=== PATIENT | male | born 1960 | race Caucasian/White ===

== ENCOUNTER → 2021-10-20 14:04 | Outpatient (CLI) | payer OTHER, SELFPAY ==
[2021-10-20 14:47] LABS: COVID19 -Nasal RAPID Negative (Negative)
== END ==
PROVIDERS: Visit Provider Surgery
DX: Z20.822 Contact with and (suspected) exposure to COVID-19 (principal); Z01.812 Encounter for preprocedural laboratory examination
CPT/HCPCS: 87635; C9803

== ENCOUNTER 2021-10-23 11:02 | Day surgery (SDC) | payer OTHER, SELFPAY ==
[2021-10-23] VITALS (7 sets, daily range): BP systolic 113–141; BP diastolic 68–82; PULSE 58–68; RESP 10–16; TEMP 36.3–36.6; O2SAT 99–100; BMI 26.5
--- NOTE | 2021-10-23 | PATH_ITS ---
[facility] Accession Number: [id number] . 01 Material submitted: . PART A: duodenum - DUODNEUM PART B: stomach - ANTRUM PART C: gastrointestinal site - GASTRIC POLYP PART D: colon - DESCENDING COLON POLYP PART E: sigmoid colon - SIGMOID COLON POLYP . 01 Diagnosis: A. Duodenum, Biopsy: Duodenal mucosa with no diagnostic abnormality. Negative for active inflammation, features of sprue, dysplasia, or malignancy. . B. Stomach, Antrum, Biopsy: Antral mucosa with mild chronic gastritis. Negative for Helicobacter by immunohistochemistry. Negative for intestinal metaplasia. Negative for dysplasia and malignancy. . C. Stomach, Polyp, Biopsy: Fundic gland polyp. No evidence of Helicobacter organisms on H/E stain. Negative for intestinal metaplasia. Negative for dysplasia and malignancy. . D. Descending Colon, Polyp, Biopsy: Tubular adenoma. . E. Sigmoid Colon, Polyp, Biopsy: Tubular adenoma. [facility] 10/26/2021 1620 Local . 01 Electronically signed: . Lady Duff MD, Pathologist NPI- [id number] . 01 Gross description: . Part A: DUODNEUM: Received in formalin are 3 fragment(s) of ruiz, soft tissue measuring 0.3 x 0.2 x 0.2 cm to 0.1 x 0.1 x 0.1 cm submitted entirely in 1 cassette(s) Part B: ANTRUM: Received in formalin are 2 fragment(s) of ruiz, soft tissue measuring 0.2 x 0.2 x 0.1 cm to 0.2 x 0.1 x 0.1 cm submitted entirely in 1 cassette(s) Part C: GASTRIC POLYP: Received in formalin is 1 fragment(s) of ruiz, soft tissue measuring 0.3 x 0.3 x 0.2 cm submitted entirely in 1 cassette(s) Part D: DESCENDING COLON POLYP: Received in formalin are 2 fragment(s) of ruiz, soft tissue measuring 0.5 x 0.2 x 0.2 cm to 0.3 x 0.1 x 0.1 cm submitted entirely in 1 cassette(s) Part E: SIGMOID COLON POLYP: Received in formalin is 1 fragment(s) of ruiz, soft tissue measuring 0.3 x 0.2 x 0.2 cm submitted entirely in 1 cassette(s) /CPE 10/24/2021 0553 Local . 01 Microscopic: . B. An immunohistochemical stain was performed to evaluate for Helicobacter organisms and is negative. The control stain showed appropriate reactivity. . * This test was developed and its performance characteristics determined by [employer]. It has not been cleared or approved by the U.S. Food and Drug Administration. The FDA has determined that such clearance or approval is not necessary. This test is used for clinical purposes. It should not be regarded as investigational or for research. . 01 Pathologist provided ICD-10: D12.4, D12.5, R68.81 . 01 CPT . 461667, 926883, 363005, 311113, 183749, K52337 Specimen Comment: A courtesy copy of this report has been sent to [phone] Performed at: 01 [facility] [address] [place] [address], [place], [place] [id number] MD Yo García MD Phone: [phone]
[2021-10-23] MEDS: SODIUM CHLORIDE 0.9% 1,000 ML 84 ML IV (11:28)
--- NOTE | 2021-10-23 11:41 | PM.HP.1 ---
History of Present Illness History of Present Illness Date Patient Seen: 10/23/21 Time Patient Seen: 11:41 Chief complaint: SDC Narrative: Early satiety weight loss. Colon cancer screening. I reviewed my recent office note from May 01. No changes with the exception of his weight stabilizing. Still using occasional NSAIDs. Patient History Medical History Hypertension Surgical History Hx of appendectomy Hx of colonoscopy S/P rotator cuff repair Family & Social History Social History: household members spouse Tobacco & Substance use: Smoking Status Former smoker alcohol intake current alcohol intake frequency a few times a month Substance Use Type does not use Meds Home Medications and Allergies Home Medications Medication Instructions Recorded Confirmed Type atorvastatin 40 mg tablet tab 10/20/21 History meloxicam 15 mg tablet tab 10/20/21 History Allergies Allergy/AdvReac Type Severity Reaction Status Date / Time No Known Drug Allergies Allergy Verified 10/23/21 11:29 Review of Systems Review of Systems ROS: Yes All systems reviewed with the patient and are negative except as otherwise documented Exam Vital Signs (past 8 hours): - 10/23/21 11:27 Temperature 97.4 F L Pulse Rate 64 Respiratory Rate 15 Blood Pressure 130/79 Pulse Oximetry 99 Oxygen Delivery Method Room Air Oxygen Delivery Method Room Air Const General: cooperative HENMT Head: normal to inspection Eyes General: appearance normal, both eyes and all related structures Neck Neck: normal visual inspection Chest Chest: normal inspection of the chest Resp Effort & Inspection: normal respiratory effort Cardio Rate: regular rate GI Inspection: normal to inspection Skin General: no rashes or lesions noted Neuro General: patient alert and patient awake Extrem General: normal to inspection Psych Appearance: grossly normal Assessment & Plan Assessment & Plan narrative: 61-year-old male with unexplained transient weight loss associated with early satiety. He has also indicated for colon cancer screening. EGD and colonoscopy are therefore pursued today. Time Spent With Patient Critical Care time: I spent a total of [] minutes of critical care time on this patient's care today; this time is exclusive of procedural time.
--- NOTE | 2021-10-23 11:44 | PM.PREOP ---
Pre-operative Note COVID-19 COVID-19 status: Negative Result date/Date tested (Pos, Neg/Pending): 10/20/21 Criteria for continued procedure: Possibility delay results in more complex future surgery or treatment Interval Note History & Physical reviewed/Exam performed by Physician: Yes Changes to H&P: Yes ASA Class (for procedural sedation): II
--- NOTE | 2021-10-23 12:21 | PM.OP.EC ---
Operative Date/Time/Diagnoses Date of procedure: 10/23/21 Time of procedure: 12:22 Pre-op diagnosis: Early satiety weight loss colon cancer screening Post-op diagnosis: same Procedure & Clinicians Study performed: EGD with biopsies and a colonoscopy with hot snare polypectomy and cold snare polypectomy Same procedure as scheduled: Yes Indications: Early satiety weight loss and colon cancer screening. Surgeon: Semaj Kennedy Procedure Notes SCOAP/Timeout: Done Procedure in detail: After the risks and benefits were explained, written and verbal informed consent was obtained. The patient was brought into the procedure room and placed into the left lateral decubitus position. Please see nurse associate data scientist notes for sedation details. The scope was introduced into the mouth through the bite block and advanced under direct visualization to the 2nd portion of the duodenum. The scope was slowly withdrawn carefully examining the mucosa for any defects or lesions. Retroflexed views were accomplished in the stomach. The stomach was decompressed, the scope was then removed from the patient who tolerated the procedure well. The patient was then turned around a digital rectal examination accomplished. The scope was introduced into the rectum and advanced to the cecum as identified by the appendiceal orifice and ileocecal valve. Scope was slowly withdrawn to carefully examine the mucosa for any defects or lesions. Multiple direct views were made through the dentate line for exclusion of pathology the colon was decompressed scope removed from the patient who tolerated procedure well. Adult colonoscope Bowel prep adequate Scope withdrawal time: 12 minutes Sedation minutes: 31 Complications: none Impression: 1. Duodenum: This was visually normal from the bulb through the 2nd portion. Random biopsies were taken from D2 for exclusion of sprue. 2. Stomach: No ulcers no outlet obstruction no mass lesions. Mild gastropathy was appreciated throughout and biopsies were therefore taken from the antrum for exclusion of H pylori. There was a diminutive polyp in the proximal stomach removed with cold forceps. Otherwise retroflexed views disclosed a subtle sliding hiatal hernia. 3. Esophagus: The squamocolumnar junction correlated with the top of the gastric folds. However it was difficult to appreciate whether there was any element of Barretts esophagus in the context of LA grade C erosive esophagitis. GEJ was at 38 cm from the incisors. The remainder of the esophagus was unremarkable. 4. Colon: There was a small polyp in the descending colon removed with cold snare. In the sigmoid colon there was a slightly larger 6 mm polyp removed with hot snare. No additional colonic pathology was appreciated throughout. Grade 1 hemorrhoids were noted on direct views. Endoscopic diagnosis 1. Gastropathy 2. Diminutive gastric polyp 3. LA grade C erosive esophagitis. 4. Colon polyps 5. Grade 1 hemorrhoids Post-procedure Plan for aftercare: 1. Await histopathology. 2. Repeat colonoscopy will likely be suggested for 7 years time. 3. 20 mg [id number] omeprazole once daily. 4. Repeat EGD to confirm mucosal healing in 8 weeks. Disposition: PACU
--- NOTE | 2021-10-23 12:35 | SUR.PHASEI ---
Pt slow to wake, denied pain, Dr. Aparicio spoke with pt at bedside.
--- NOTE | 2021-10-23 12:47 | SUR.PHASEI ---
Drinking juice, no complaints.To OPD
--- NOTE | 2021-10-23 13:08 | SUR.PHASEII ---
Pt ready to go, called, d/c instructions discussed, pt dressed, left when ready left in stable condition.
== END 2021-10-23 13:12 | disposition home or self-care (01) ==
PROVIDERS: PCP Physician Assistant; Referring Provider Internal Medicine Gastroenterology; Visit Provider Internal Medicine Gastroenterology
PROC: 0DJD8ZZ Inspection of Lower Intestinal Tract, Via Natural or Artificial Opening Endoscopic (ICD-10-PCS; CPT 45378; principal; 2021-10-23 12:30)
PROC: 0DJ08ZZ Inspection of Upper Intestinal Tract, Via Natural or Artificial Opening Endoscopic (ICD-10-PCS; CPT 43235; 2021-10-23 12:30)
DX: Z12.11 Encounter for screening for malignant neoplasm of colon (principal); Z86.010 Personal history of colon polyps; R68.81 Early satiety; R63.4 Abnormal weight loss; K44.9 Diaphragmatic hernia without obstruction or gangrene; K20.90 Esophagitis, unspecified without bleeding; K31.7 Polyp of stomach and duodenum; K31.9 Disease of stomach and duodenum, unspecified; K64.0 First degree hemorrhoids; K29.50 Unspecified chronic gastritis without bleeding; D12.4 Benign neoplasm of descending colon; D12.5 Benign neoplasm of sigmoid colon
CPT/HCPCS: 45385; 43239; J2704; J3010

== ENCOUNTER → 2021-12-29 11:01 | Outpatient (CLI) | payer OTHER, SELFPAY ==
[2021-12-29 11:55] LABS: COVID19 -Nasal RAPID Negative (Negative)
== END ==
PROVIDERS: PCP Physician Assistant; Visit Provider Surgery
DX: Z20.822 Contact with and (suspected) exposure to COVID-19 (principal); Z01.812 Encounter for preprocedural laboratory examination
CPT/HCPCS: 87635; C9803

== ENCOUNTER 2022-01-01 12:54 | Day surgery (SDC) | payer OTHER, SELFPAY ==
--- NOTE | 2022-01-01 | PATH_ITS ---
[facility] Accession Number: [id number] . 01 Material submitted: . PART A: duodenum - DUODENAL NODULE PART B: esophagus - Z-LINE BIOPSY . 01 Diagnosis: A. Duodenal Nodule, Biopsy: Duodenal mucosa with active inflammation. No evidence of celiac disease. See comment. . B. Z Line, Biopsy: Squamocolumnar junctional mucosa with changes consistent with reflux. No goblet cell metaplasia and no fungal organisms identified on AB/PAS special stain. No displasia or malignancy. [facility] 01/03/2022 1254 Local . 01 Comment: A. The features raise a differential including peptic duodenitis or NSAID-induced injury among other possibilities. . 01 Electronically signed: . Do Alarcon MD, Pathologist NPI- [id number] . 01 Gross description: . Part A: DUODENAL NODULE: Received in formalin is 1 fragment(s) of ruiz, soft tissue measuring 0.2 x 0.1 x 0.1 cm submitted entirely in 1 cassette(s) Part B: Z-LINE BIOPSY: Received in formalin is 1 fragment(s) of ruiz, soft tissue measuring 0.1 x 0.1 x 0.1 cm submitted entirely in 1 cassette(s) /CPE 01/02/2022 0642 Local . 01 Pathologist provided ICD-10: K21.00, K29.80 . 01 CPT . 553684, 133844, 132553 Specimen Comment: A courtesy copy of this report has been sent to [phone] Performed at: 01 [facility] [address] [place] [address] [address] [facility], [place], [place] [id number] MD Yo García MD Phone: [phone]
[2022-01-01 13:11] VITALS: BMI 27.3
[2022-01-01 13:17] VITALS: BP 119/76; PULSE 59; RESP 16; TEMP 35.8; O2SAT 100
[2022-01-01] MEDS: SODIUM CHLORIDE 0.9% 1,000 ML 84 ML IV (13:19)
--- NOTE | 2022-01-01 14:11 | PM.HP.1 ---
History of Present Illness History of Present Illness Date Patient Seen: 01/01/22 Time Patient Seen: 14:11 Chief complaint: EGD Narrative: Here to follow-up on LA grade C erosive esophagitis. Patient History Medical History Hypertension Surgical History Hx of appendectomy Hx of colonoscopy S/P rotator cuff repair Family & Social History Social History: household members spouse Tobacco & Substance use: Smoking Status Former smoker alcohol intake current alcohol intake frequency a few times a month Substance Use Type does not use Meds Home Medications and Allergies Home Medications Medication Instructions Recorded Confirmed Type atorvastatin 40 mg tablet 40 mg PO DAILY 10/20/21 01/01/22 History meloxicam 15 mg tablet 15 mg PO DAILY 10/20/21 01/01/22 History losartan 25 mg tablet 25 mg PO DAILY 01/01/22 01/01/22 History omeprazole 20 mg capsule,delayed 20 mg PO DAILY 01/01/22 01/01/22 History release Allergies Allergy/AdvReac Type Severity Reaction Status Date / Time No Known Drug Allergies Allergy Verified 01/01/22 13:06 Review of Systems Review of Systems ROS: Yes All systems reviewed with the patient and are negative except as otherwise documented Exam Vital Signs (past 8 hours): - 01/01/22 13:17 Temperature 96.4 F L Pulse Rate 59 L Respiratory Rate 16 Blood Pressure 119/76 Pulse Oximetry 100 Oxygen Delivery Method Room Air Oxygen Delivery Method Room Air Const General: cooperative HENMT Head: normal to inspection Eyes General: appearance normal, both eyes and all related structures Neck Neck: normal visual inspection Chest Chest: normal inspection of the chest Resp Effort & Inspection: normal respiratory effort Cardio Rate: regular rate GI Inspection: normal to inspection Skin General: no rashes or lesions noted Neuro General: patient alert and patient awake Extrem General: normal to inspection and no pedal edema Psych Appearance: grossly normal Assessment & Plan Assessment & Plan narrative: 61-year-old male with LA grade C erosive esophagitis. He is doing very well on proton pump inhibitor therapy. Repeat EGD to establish esophagitis healing and exclude Barretts is pursued today. Time Spent With Patient Critical Care time: I spent a total of [] minutes of critical care time on this patient's care today; this time is exclusive of procedural time.
--- NOTE | 2022-01-01 14:13 | PM.PREOP ---
Pre-operative Note COVID-19 COVID-19 status: Negative Result date/Date tested (Pos, Neg/Pending): 12/29/21 Criteria for continued procedure: Possibility delay results in more complex future surgery or treatment Interval Note History & Physical reviewed/Exam performed by Physician: Yes Changes to H&P: No ASA Class (for procedural sedation): II
--- NOTE | 2022-01-01 15:03 | PM.OP.EGD ---
Operative Date/Time/Diagnoses Date of procedure: 01/01/22 Time of procedure: 15:03 Pre-op diagnosis: LA grade C erosive esophagitis. Post-op diagnosis: same Procedure & Clinicians Study performed: EGD with biopsy Same procedure as scheduled: Yes Indications: LA grade C erosive esophagitis. Surgeon: Semaj Kennedy Procedure Notes SCOAP/Timeout: Done Procedure in detail: After the risks and benefits were explained, written and verbal informed consent was obtained. The patient was brought into the procedure room and placed into the left lateral decubitus position. Please see nurse seo marketing specialist notes for sedation details. The scope was introduced into the mouth through the bite block and advanced under direct visualization to the 2nd portion of the duodenum. The scope was slowly withdrawn carefully examining the mucosa for any defects or lesions. Retroflexed views were accomplished in the stomach. The stomach was decompressed, the scope was then removed from the patient who tolerated the procedure well. Sedation minutes: 10 Complications: none Impression: 1. Duodenum: There was a diminutive erythematous nodule in the bulb which was removed with cold forceps. Otherwise no significant pathology appreciated from the bulb through into the 2nd portion. 2. Stomach: Patient had a gastropathy as was previously demonstrated. I did not repeat biopsies today. Retroflexed views of the LES were unremarkable. 3. Esophagus: The squamocolumnar junction correlated with the top of the gastric folds. However the Z-line was slightly wondering. In the 12:00 p.m. and 4:00 a.m. location there was a slight extension up into the tubular esophagus. All the previously identified esophagitis has completely healed. I took a regular-sized biopsy from the 12:00 p.m. location and of very small biopsy from the 4:00 a.m. location. The remainder of the esophagus was unremarkable. Endoscopic diagnosis 1. Irregular [id number]-tfsl-wtzbwtus for exclusion of Barretts 2. Duodenal nodule 3. Gastropathy Post-procedure Plan for aftercare: 1. Await histopathology. 2. Continue anti-reflux therapy. 3. If Jarrett's is identified, surveillance EGD would be indicated. Disposition: PACU
[2022-01-01 15:05] VITALS: BP 97/60; PULSE 62; RESP 10; TEMP 35.7; O2SAT 92
[2022-01-01 15:10] VITALS: BP 95/62; PULSE 61; RESP 12; O2SAT 96
[2022-01-01 15:15] VITALS: BP 108/70; PULSE 61; RESP 12; O2SAT 96
[2022-01-01 15:20] VITALS: BP 113/74; PULSE 67; RESP 18; O2SAT 95
[2022-01-01 15:26] VITALS: BP 108/70; PULSE 65; RESP 14; TEMP 36.3; O2SAT 95
== END 2022-01-01 15:41 | disposition home or self-care (01) ==
PROVIDERS: PCP Physician Assistant; Referring Provider Internal Medicine Gastroenterology; Visit Provider Internal Medicine Gastroenterology
PROC: 0DJ08ZZ Inspection of Upper Intestinal Tract, Via Natural or Artificial Opening Endoscopic (ICD-10-PCS; CPT 43235; principal; 2022-01-01 14:00)
DX: K20.80 Other esophagitis without bleeding (principal); K31.9 Disease of stomach and duodenum, unspecified; K29.80 Duodenitis without bleeding
CPT/HCPCS: 43239; J2704; J3010

== ENCOUNTER → 2022-05-21 14:10 | Outpatient (CLI) | payer OTHER, SELFPAY ==
[2022-05-21 15:24] LABS: COVID19 -Nasal RAPID Negative (Negative)
== END ==
PROVIDERS: PCP Physician Assistant; Referring Provider Orthopaedic Surgery; Visit Provider Orthopaedic Surgery
DX: Z20.822 Contact with and (suspected) exposure to COVID-19 (principal)
CPT/HCPCS: 87635; C9803

== ENCOUNTER 2022-05-23 08:30 | Day surgery (SDC) | payer OTHER, SELFPAY ==
[2022-05-17 10:14] VITALS: BMI 22.9
[2022-05-23] VITALS (9 sets, daily range): BP systolic 86–135; BP diastolic 49–89; PULSE 60–75; RESP 10–16; TEMP 36.2–36.8; O2SAT 91–99; BMI 22.9
[2022-05-23] MEDS: LACTATED RINGERS 1,000 ML 42 ML IV ×2 (08:58→10:33)
--- NOTE | 2022-05-23 09:12 | PM.PREOP ---
Pre-operative Note COVID-19 COVID-19 status: Negative Result date/Date tested (Pos, Neg/Pending): 05/21/22 Interval Note History & Physical reviewed/Exam performed by Physician: Yes Changes to H&P: No
--- NOTE | 2022-05-23 09:56 | SUR.PREOP ---
Block start time 1034 . Monitoring initiated and maintained throughout procedure. Oxygen and medications given per anesthesiologist instructions. Patient remained stable throughout procedure, no adverse reactions noted. Block end time 1046.
[2022-05-23] MEDS: CEFAZOLIN 2 GM/100 ML PREMIX 100 ML IV (09:58)
--- NOTE | 2022-05-23 10:23 | SUR.OPER ---
Lateral on padded OR bed with mccord bag positioner, head on pillow, gel axillary roll in place, bottom leg bent with gel pad under knee to foot, upper leg straight and supported with pillows and secured with padded strap. Operative arm secured in shoulder positioning suspension device. non-operative arm secured on padded arm board. Safety belt at hip, tape over blanket securing lower legs.
[2022-05-23] MEDS: EPINEPHrine 1 MG/ML 2 MG IRR (10:36)
[2022-05-23] MEDS: BUPIVACAINE 0.5% W/ EPI (PF) 30 ML VIAL INJ (10:37)
[2022-05-23] MEDS: EPINEPHrine 1 MG/ML IRR (11:02)
--- NOTE | 2022-05-23 11:21 | P.OP_ITS ---
Operative Date/Time/Diagnoses Date of procedure: 05/23/22 Time of procedure: 11:21 Pre-op diagnosis: Left shoulder rotator cuff tear Post-op diagnosis: same Procedure & Clinicians Procedure: 1. Arthroscopic left shoulder rotator cuff repair 2. Arthroscopic left shoulder subacromial decompression Same procedure as scheduled: Yes Indications: The patient is a 61-year-old gentleman who has had left shoulder pain that has not responded to non operative measures. An MRI has confirmed a rotator cuff tear. He is agreed to rotator cuff repair after discussion of the risks, benefits and alternatives. Risks discussed included but were not limited to: Failure to improve, stiffness, infection, deep venous thrombosis, pulmonary embolism, stroke, myocardial infarction, permanent paralysis and . Surgeon: Hermann Galvan Film Flat Inspector: Bessy Bridges Yes if Unassisted: No Anesthesia Type: General, Peripheral nerve block and Local Operative Notes Findings: 1. Intact glenohumeral cartilage 2. Mild degenerative fraying of the glenoid labrum 3. Intact glenohumeral ligaments 4. Intact subscapularis 5. Intact biceps tendon 6. Full-thickness tear of the supraspinatus extending approximately 1 cm anterior to posterior with a triangular appearance. When reduced this was an L shaped tear. 7. Intact infraspinatus 8. Normal infrapatellar pouch 9. Bursal rotator cuff notable for the full-thickness tear described above 10. Type 2 acromion with impingement lesion 11. Acromioclavicular joint not visualized due to lack of preoperative symptoms 12. Exam under anesthesia notable for full range of motion with no evidence for pathologic laxity Closure Type: primary Specimen(s): none sent Prosthetic devices, grafts, tissues, transplants, or devices: Implants used in this procedure manufactured by the [employer] and included a single fully-threaded [employer] corkscrew anchor 5.5 mm diameter with 3 sutures Applied: implant(s) Estimated Blood Loss (mL): 10 Blood products transfused: none Procedure in detail: The patient was seen in the preoperative area where he identified his left shoulder as the operative site and this was marked with my initials. He underwent induction of an interscalene block and then was taken to the operating room and placed on the operating room table in a supine position where he underwent the induction of a general anesthetic. His left shoulder was examined under anesthesia with the findings given above. He was then repositioned in the right lateral decubitus position. An axillary roll was used and there was padding for all pressure points. He was stabilized in this position using the mccord bag and adhesive tape. A registered phlebotomist part time-out was performed. The left arm was prepared for the fingertips to the base of the neck with ChloraPrep in the usual fashion and draped through sterile drapes. The arm was placed in 10 lb of balanced skin suspension. Subcutaneous landmarks were outlined on the skin with a marking pen. Portal sites were selected. The posterior portal was created and the arthroscope inserted into the glenohumeral joint. After diagnostic arthroscopy the arthroscope was withdrawn and placed in the subacromial space through the posterior portal. A lateral portal was placed in the midline of the rotator cuff using needle localization. A bursectomy was performed for visualization. The type 2 acromion was converted to a type 1 acromion due to the impingement lesion. The bur used for this was also used to prepare the greater tuberosity to bleeding bone. A grasper was used to determine the tear pattern. It became evident that he had along the rotator interval and the tear was retracted posteriorly. An anchor was placed in the anterior aspect of the greater tuberosity and 1 of the sutures placed as a mattress suture across the rotator interval and the other 2 sutures placed at intervals along the posterior flap to bring it to the greater tuberosity. These were then tied to complete the repair. The integrity of the repair was confirmed through the posterior and lateral viewing points. At this point all arthroscopic equipment was removed, the wounds were closed with 4-0 Monocryl and Steri-Strips. Subcutaneous tissues were injected with Marcaine for postoperative pain control. Dressings of sterile 4x4s, sterile ABD and an adhesive dressing were applied. Patient's arm was placed in a sling and he was transferred to the recovery room in good condition having tolerated the procedure well. The services of a skilled janitorial assistant were necessary during this procedure to provide an extra set of hands to hold the camera and to assist with positioning of the limb to assist with the rotator cuff repair. Without the assistance of Ms. Hanson the procedure could not have been completed in an expedient, safe fashion. Complications: none Post-operative Condition: stable Disposition: PACU Plan for aftercare: The patient will be maintained on a standard small to medium size rotator cuff tear protocol with 6 weeks of passive range of motion. He will be discharged today with follow-up in 10-14 days.
== END 2022-05-23 12:49 | disposition home or self-care (01) ==
PROVIDERS: PCP Physician Assistant; Referring Provider Orthopaedic Surgery; Visit Provider Orthopaedic Surgery
PROC: (CPT 29827; principal; 2022-05-23 10:00)
DX: S46.012A Strain of muscle(s) and tendon(s) of the rotator cuff of left shoulder, initial encounter (principal); G89.18 Other acute postprocedural pain; M25.812 Other specified joint disorders, left shoulder
CPT/HCPCS: 29827; 29826; 64450; J0171; J0690; J1100; J2250; J2405; J2704; J3010